=== PATIENT | male | born 1995 | race Caucasian/White ===

== ENCOUNTER 2017-01-19 23:22 | Emergency (ER) | payer OTHER ==
[~2017-01-19] VITALS: Ht 195.6 cm; Wt 166.0 kg
[2017-01-19 23:33] VITALS: Ht 195.6 cm; Wt 166.0 kg
[2017-01-20] MEDS ORDERED: CEPH-443 PO (01:05)
[2017-01-20] MEDS ORDERED: BEN25 PO (01:05)
--- NOTE | 2017-01-20 01:13 | ERD ---
ER Documentation Chief Complaint Date/Time DATE: 01/20/17 TIME: 01:09 Chief Complaint rash on right forearm, left upper arm, left leg x 2 days HPI Patient is a 21-year-old male who presents to the emergency department with concerns of rash. Patient states lesions occurred 2 days ago. Patient reports redness and swelling to his left upper arm. Patient states the lesions are itchy in nature. Patient states he was outdoors prior to when he noticed lesions. Patient does report scratching the lesions secondary to itching. Patient denies any new creams, lotions, foods or pets. Patient denies any fevers, chills, nausea, vomiting, difficulty breathing, throat swelling, lip swelling, tongue swelling. Patient is up-to-date with his vaccinations. ROS All systems reviewed and are negative except as per history of present illness. Medications Home Meds Active Scripts Diphenhydramine Hcl* (Benadryl*) 25 Mg Cap, 25 MG PO Q6, #30 CAP Prov:REGINA FRIED PA-C 01/20/17 Cephalexin* (Keflex*) 500 Mg Capsule, 500 MG PO QID for 7 Days, CAP Prov:REGINA FRIED PA-C 01/20/17 Allergies Allergies: Coded Allergies: No Known Allergy (Unverified , 01/19/17) PMhx/Soc History of Surgery: Yes (SCALP ) Anesthesia Reaction: No Hx Neurological Disorder: No Hx Respiratory Disorders: No Hx Cardiac Disorders: No Hx Psychiatric Problems: No Hx Miscellaneous Medical Probl: No Hx Alcohol Use: No Hx Substance Use: No Hx Tobacco Use: No Smoking Status: Never smoker Physical Exam Vitals Vital Signs Date Time Temp Pulse Resp B/P Pulse Ox O2 Delivery O2 Flow Rate FiO2 01/20/17 01:50 98.2 68 20 98 Room Air 01/19/17 23:33 79 20 136/92 99 Physical Exam GENERAL: Well-developed, well-nourished male. Appears in no acute distress. Speaking in full sentences. HEAD: Normocephalic, atraumatic. EYES: Pupils are equally reactive bilaterally. EOMs grossly intact. No conjunctival erythema. ENT: Moist mucous membranes. No uvula deviation. No kissing tonsils. No lip swelling. No tongue swelling. No throat swelling. NECK: Supple. No meningismus. Normal range of motion of the neck. No hyperextension of the neck. LUNG: Clear to auscultation bilaterally. No rhonchi, wheezing, rales or coarse breath sounds. HEART: Regular rate and rhythm. No murmurs, rubs or gallops. EXTREMITIES: Equal pulses bilaterally. No peripheral clubbing, cyanosis or edema. No unilateral leg swelling. NEUROLOGIC: Alert and oriented. Moving all four extremities without any difficulty. Normal speech. Steady gait. SKIN: Normal color. Warm and dry. No rashes or lesions. 3 cm circular, papular , erythematous lesion noted on the patient's left upper arm. Minimal swelling and no warmth. No lymphatic streaking. Active discharge or bleeding. 2 cm circular papular erythematous lesion noted on the patient's right forearm. No swelling. No warmth. No lymphatic streaking. Procedures/MDM MEDICAL DECISION MAKING: This is a 21-year-old male who presents with a rash 2 days. Vital signs were reviewed. Patient was afebrile. Patient is not diabetic. Skin exam revealed findings consistent with possible bug bites. Given these findings, the patient' s presentation is most consistent with bug bites. I have a much lower clinical concern for necrotizing fasciitis, sepsis, gangrene, David-Jerome syndrome, toxic epidural necrolysis, abscess, cellulitis, herpes zoster, viral exanthem, anaphylaxis, fungal infection, impetigo, dermatitis. At this time, I will empirically treat the patient with a course of antibiotics to avoid any infection or abscess formation. PRESCRIPTIONS: Keflex, Benadryl DISCHARGE: At this time, patient is stable for discharge and outpatient management. I have advised the patient to avoid any new products, creams or possible allergens. I have advised the patient to avoid scratching the lesions. I have instructed the patient to follow-up with his/her primary care physician in 1-2 days. If symptoms persist, patient may need to see a head host/hostess for further examinations and testing. I have instructed the patient to promptly return to the ER at any time for any new or worsening symptoms including increased pain, fever, redness, swelling, warmth, difficulty breathing or vomiting. The patient and/or family expressed understanding of and agreement with this plan. All questions were answered. Home care instructions were provided. Departure Diagnosis: Primary Impression: Bug bites Encounter type: initial encounter Qualified Code: W57.XXXA - Bug bites, initial encounter Condition: Stable Patient Instructions: Insect Bites and Stings Referrals: [facility] Additional Instructions: Call your primary care doctor TOMORROW for an appointment during the next 1-2 days.See the doctor sooner or return here if your condition worsens before your appointment time. Continue to monitor lesions. Return for any new or worsening symptoms including increasing redness, swelling, warmth, discharge, fever, chills. REGINA FRIED PA-C Jan 20, 2017 01:13
[2017-01-20 01:50] VITALS: PULSE 68; RESP 20; TEMP 98.2
== END 2017-01-20 01:47 | disposition home or self-care (01) ==
LOC: FTE 23:22
DX: S40.862A Insect bite (nonvenomous) of left upper arm, initial encounter (principal); S50.861A Insect bite (nonvenomous) of right forearm, initial encounter; W57.XXXA Bitten or stung by nonvenomous insect and other nonvenomous arthropods, initial encounter
CPT/HCPCS: 99283